=== PATIENT | male | born 2000 | race African-American/Black ===

== ENCOUNTER 2022-06-04 11:37 | Emergency (ER) | payer OTHER, MEDICAID ==
[2022-06-04] VITALS (8 sets, daily range): BP systolic 118–138; BP diastolic 66–80
[~2022-06-04] VITALS: Ht 165.1 cm; Wt 72.7 kg
== END 2022-06-04 14:05 | disposition home or self-care (01) | DRG 561 ==
LOC: ED 11:37
PROC: 0HDQXZZ Extraction of Finger Nail, External Approach (ICD-10-PCS; principal; 2022-06-04)
DX: S62.66 Nondisplaced fracture of distal phalanx of finger (principal); S61.301A Unspecified open wound of left index finger with damage to nail, initial encounter; Z59.00 Homelessness unspecified; V03.10XA Pedestrian on foot injured in collision with car, pick-up truck or van in traffic accident, initial encounter; Y92.410 Unspecified street and highway as the place of occurrence of the external cause; Z91.19 Patient's noncompliance with other medical treatment and regimen